=== PATIENT | male | born 1990 | race Caucasian/White ===

== ENCOUNTER 2016-08-20 19:48 | Inpatient (IN) | payer OTHER ==
[2016-08-20] MEDS ORDERED: ZOFRAN IV ONE (20:06)
[2016-08-20] MEDS ORDERED: NS 1,000 ML IV ONE (20:06)
[2016-08-20] MEDS ORDERED: SODIUM CHLORIDE 0.9% INJ ONE (20:06)
[2016-08-20] MEDS ORDERED: PROTONIX IV ONE (20:06)
[2016-08-20 20:17] LABS: MANUAL DIFF NEEDED? NO
[2016-08-20 20:27] LABS: BASO% 0.4 % (0.0-0.8); EOS# 0.46 X1000 (0.0-0.7); EOS% 3.6 % (0.0-10.0); HEMATOCRIT 44.6 % (42.0-52.0); HEMOGLOBIN 15.2 g/dL (14.0-18.0); IMM GRAN# 0.03 X1000 (0.0-0.04); IMM GRAN% 0.2 % (0.0-0.5); LYMPH# 3.31 X1000 (1.2-3.4); MCH 30.3 PG (27-31); MCHC 34.1 g/dL (33-37); MONO# 0.99 X1000 (0.11-0.59); MONO% 7.8 % (1.7-9.3); MPV 9.8 FL (7.4-10.4); PLT 233 X1000 (130-400); RBC 5.01 XMIL (4.7-6.1)
--- NOTE | 2016-08-20 20:48 | PROVIDER DOCUMENTATION ---
HPI-Abdominal Pain/GI Problem - General Source: patient - History of Present Illness-ABD Nature of Presenting Problems: 25 year old M presents to the ED with a cc of nausea and vomiting blood x2 days. Pt is a Dr. Frederick pt and is in the process of being worked up for ALS. PT c/o R sided ABD pain Abdominal Pain Onset Location: reports: RUQ, RLQ Quality of Pain: reports: aching Severity in ED: reports: moderate Onset/Duration: reports: 24 hours ago Emesis Description: reports: red blood Bruising or Bleeding Gums?: No Similar Symptoms Previously?: No Recently seen or treated by another doctor?: No <Roslyn Jackson - Last Filed: 08/20/16 20:57> <George William - Last Filed: 08/20/16 21:34> - General Chief Complaint: Vomiting Blood Stated Complaint: THREWING UP BLOOD Time Seen by Provider: 08/20/16 20:05 Allergies/Adverse Reactions: Patient Allergies Allergy/AdvReac Type Severity Reaction Status Date / Time cephalexin monohydrate * Allergy Severe ANAPHYLAXIS Verified 08/21/14 04:13 [From Keflex] amoxicillin Allergy ANAPHYLAXIS Verified 08/20/16 19:56 Penicillins Allergy ANAPHYLAXIS Verified 08/21/14 04:13 Sulfa (Sulfonamide Allergy ANAPHYLAXIS Verified 08/21/14 04:13 Antibiotics) Home Medications: Home Medication List Medication Instructions Recorded Confirmed Last Taken Type Sucralfate [Carafate] 1 tab PO DAILY 08/20/16 08/20/16 08/20/16 History Review of Systems - Adult - REVIEW OF SYSTEMS - ADULT Constitutional: denies: chills, fever Eyes: reports: no symptoms reported Ears, Nose, Mouth & Throat: reports: no symptoms reported Cardiovascular: reports: no symptoms reported Respiratory: denies: cough, shortness of breath Gastrointestinal: reports: abdominal pain, hematemesis, nausea, vomiting Genitourinary: denies: dysuria, hematuria Musculoskeletal: reports: no symptoms reported Integumentary: denies: skin sores/ulcer, skin thickening Neurological: reports: no symptoms reported Psychiatric: reports: no symptoms reported Endocrine: reports: no symptoms reported Hematologic/Lymphatic: reports: no symptoms reported Allergic/Immunologic: reports: no symptoms reported All Other Systems: Reviewed and Negative <Roslyn Jackson - Last Filed: 08/20/16 20:57> Past History - Adult - PAST MEDICAL HISTORY-ADULT Review of Records: reports: Nursing Assessment Review, Medications Reviewed Major Childhood Illnesses: reports: denies history Cardiovascular: reports: denies history Respiratory: reports: asthma Gastrointestinal: reports: denies history Obstetrical/Gynecological: reports: denies history Genitourinary: reports: kidney stones Musculoskeletal: reports: denies history Neurological: reports: denies history Endocrine/Immune: reports: denies history Other Conditions: reports: denies history - PRIOR SURGERIES/PROCEDURES Surgical/Procedure History: reports: cholecystectomy, other (kidney stone removal/ureteral stent) - IMMUNIZATION STATUS Childhood Immunizations: See Nurse Assessment Flu Vaccine: See Nurse Assessment - FAMILY HISTORY Family History: reviewed, not pertinent - SOCIAL HISTORY Smoking: non-smoker <Roslyn Jackson - Last Filed: 08/20/16 20:57> Physical Exam-General - PHYSICAL EXAM-ADULT Initial Vital Signs Reviewed: Yes - CONSTITUTIONAL General Appearance: alert, no apparent distress - RESPIRATORY Respiratory: chest non-tender, lungs clear, normal breath sounds - CARDIOVASCULAR Cardiovascular: normal peripheral pulses, regular rate, rhythm, no edema - GASTROINTESTINAL (ABDOMEN) Abdominal Exam: normal bowel sounds, soft, tenderness (moderate RUQ tenderness) - MUSCULOSKELETAL Extremity: normal inspection - SKIN Integumentary: normal color, normal turgor, warm/dry - PSYCHIATRIC Psych/Mental Status: normal mood/affect, normal thought content, normal thought process, oriented x 3 <Roslyn Jackson - Last Filed: 08/20/16 20:57> Progress - PLAN OF CARE/RESULTS Progress/Plan/Lab Results: Laboratory Tests 08/20/16 08/20/16 08/20/16 20:10 20:10 20:10 WBC 12.71 H RBC 5.01 Hgb 15.2 Hct 44.6 MCV 89.0 MCH 30.3 MCHC 34.1 RDW Std Deviation 13.3 Plt Count 233 MPV 9.8 Immature Gran % (Auto) 0.2 Neut % (Auto) 62.0 Lymph % (Auto) 26.0 Giles % (Auto) 7.8 Eos % (Auto) 3.6 Baso % (Auto) 0.4 Immature Gran # (Auto) 0.03 Neut # (Auto) 7.87 H Lymph # (Auto) 3.31 Giles # (Auto) 0.99 H Eos # (Auto) 0.46 Baso # (Auto) 0.05 PT 14.1 INR 1.06 APTT (Factor Assay) 36.5 Sodium 137 Potassium 3.8 Chloride 103 Carbon Dioxide 22 L Anion Gap 12 BUN 13 Creatinine 1.2 Estimated GFR/1.73 m2 > 60 BUN/Creatinine Ratio 11 Glucose 95 Calculated Osmolality 274 Calcium 9.8 Total Bilirubin 0.50 AST 25 ALT 34 Alkaline Phosphatase 119 Total Protein 7.4 Albumin 4.9 Globulin 3.0 Albumin/Globulin Ratio 2.0 Urine Source Urine Color Urine Clarity Urine pH Ur Specific [place] Urine Protein Urine Ketones Urine Blood Urine Nitrite Urine Bilirubin Urine Urobilinogen Urine Microscopic RBC Urine WBC Urine Microscopic WBC Ur Epithelial Cells Urine Bacteria Urine Glucose Blood Type 08/20/16 08/20/16 20:10 21:03 WBC RBC Hgb Hct MCV MCH MCHC RDW Std Deviation Plt Count MPV Immature Gran % (Auto) Neut % (Auto) Lymph % (Auto) Giles % (Auto) Eos % (Auto) Baso % (Auto) Immature Gran # (Auto) Neut # (Auto) Lymph # (Auto) Giles # (Auto) Eos # (Auto) Baso # (Auto) PT INR APTT (Factor Assay) Sodium Potassium Chloride Carbon Dioxide Anion Gap BUN Creatinine Estimated GFR/1.73 m2 BUN/Creatinine Ratio Glucose Calculated Osmolality Calcium Total Bilirubin AST ALT Alkaline Phosphatase Total Protein Albumin Globulin Albumin/Globulin Ratio Urine Source CLEAN CATCH Urine Color YELLOW Urine Clarity CLEAR Urine pH 6.5 Ur Specific [place] 1.015 Urine Protein NEGATIVE Urine Ketones 1+(Small) A Urine Blood NEGATIVE Urine Nitrite NEGATIVE Urine Bilirubin NEGATIVE Urine Urobilinogen NORMAL Urine Microscopic RBC TNTC A Urine WBC NEGATIVE Urine Microscopic WBC <10 Ur Epithelial Cells <10 Urine Bacteria 1+ Urine Glucose NEGATIVE Blood Type B POSITIVE Orders Category Date Time Status Saline Loc NOW Care 08/20/16 20:[address] ABD/PELVIS W/ IV CONT ONLY [CT] Stat Exams 08/20/16 21:33 Ordered CBC WITH DIFF [HEME] Stat Lab 08/20/16 20:10 Completed COMPREHENSIVE METABOLIC PANEL [CHEM] Stat Lab 08/20/16 20:[address]IME WITH INR [address] [COAG] Stat Lab 08/20/16 20:[address] [COAG] Stat Lab 08/20/16 20:10 Completed TYPE & SCREEN [BBK] Stat Lab 08/20/16 20:[address] W/POSS RFLX CULT [URINALYSIS] Stat Lab 08/20/16 21:03 Completed 0.9% Sodium Chloride Inj [Ns] 1,000 ml Med 08/20/16 20:06 Discontinued IV 999 mls/hr Ondansetron [Zofran] Med 08/20/16 20:06 Discontinued 4 mg IV NOW ONE Pantoprazole [Protonix] Med 08/20/16 20:06 Discontinued 40 mg IV NOW ONE Sodium Chloride 0.9% Med 08/20/16 20:06 Discontinued 10 ml INJ NOW ONE Vital Signs Temp Pulse Resp BP Pulse Ox 08/20/16 21:00 97.5 F L 55 L 16 122/73 100 08/20/16 19:58 97.2 F L 64 18 128/67 100 cephalexin monohydrate * [From Keflex] Allergy (Severe, Verified 08/21/14 04:13) ANAPHYLAXIS amoxicillin Allergy (Verified 08/20/16 19:56) ANAPHYLAXIS Penicillins Allergy (Verified 08/21/14 04:13) ANAPHYLAXIS Sulfa (Sulfonamide Antibiotics) Allergy (Verified 08/21/14 04:13) ANAPHYLAXIS Sucralfate [Carafate] 1 tab PO DAILY 08/20/16 Laboratory 08/20/16 08/20/16 08/20/16 21:03 20:10 20:10 WBC RBC Hgb Hct MCV MCH MCHC RDW Std Deviation Plt Count MPV Immature Gran % (Auto) Neut % (Auto) Lymph % (Auto) Giles % (Auto) Eos % (Auto) Baso % (Auto) Immature Gran # (Auto) Neut # (Auto) Lymph # (Auto) Giles # (Auto) Eos # (Auto) Baso # (Auto) PT 14.1 INR 1.06 APTT (Factor Assay) 36.5 Sodium Potassium Chloride Carbon Dioxide Anion Gap BUN Creatinine Estimated GFR/1.73 m2 BUN/Creatinine Ratio Glucose Calculated Osmolality Calcium Total Bilirubin AST ALT Alkaline Phosphatase Total Protein Albumin Globulin Albumin/Globulin Ratio Urine Source CLEAN CATCH Urine Color YELLOW Urine Clarity CLEAR Urine pH 6.5 Ur Specific [place] 1.015 Urine Protein NEGATIVE Urine Ketones 1+(Small) A Urine Blood NEGATIVE Urine Nitrite NEGATIVE Urine Bilirubin NEGATIVE Urine Urobilinogen NORMAL Urine Microscopic RBC TNTC A Urine WBC NEGATIVE Urine Microscopic WBC <10 Ur Epithelial Cells <10 Urine Bacteria 1+ Urine Glucose NEGATIVE Blood Type B POSITIVE 08/20/16 08/20/16 20:10 20:10 WBC 12.71 H RBC 5.01 Hgb 15.2 Hct 44.6 MCV 89.0 MCH 30.3 MCHC 34.1 RDW Std Deviation 13.3 Plt Count 233 MPV 9.8 Immature Gran % (Auto) 0.2 Neut % (Auto) 62.0 Lymph % (Auto) 26.0 Giles % (Auto) 7.8 Eos % (Auto) 3.6 Baso % (Auto) 0.4 Immature Gran # (Auto) 0.03 Neut # (Auto) 7.87 H Lymph # (Auto) 3.31 Giles # (Auto) 0.99 H Eos # (Auto) 0.46 Baso # (Auto) 0.05 PT INR APTT (Factor Assay) Sodium 137 Potassium 3.8 Chloride 103 Carbon Dioxide 22 L Anion Gap 12 BUN 13 Creatinine 1.2 Estimated GFR/1.73 m2 > 60 BUN/Creatinine Ratio 11 Glucose 95 Calculated Osmolality 274 Calcium 9.8 Total Bilirubin 0.50 AST 25 ALT 34 Alkaline Phosphatase 119 Total Protein 7.4 Albumin 4.9 Globulin 3.0 Albumin/Globulin Ratio 2.0 Urine Source Urine Color Urine Clarity Urine pH Ur Specific [place] Urine Protein Urine Ketones Urine Blood Urine Nitrite Urine Bilirubin Urine Urobilinogen Urine Microscopic RBC Urine WBC Urine Microscopic WBC Ur Epithelial Cells Urine Bacteria Urine Glucose Blood Type Will admit per Dr. Frederick. - CONSULTS/PCP/HOSPITALIST Notification #1 *Consult/PCP/Hospitalist*: Dr. Frederick Time Discussed: 21:33 Consult Disposition: Admit <George William - Last Filed: 08/20/16 21:34> Departure <Roslyn Jackson - Last Filed: 08/20/16 20:57> - Departure Time of Disposition Order: 21:34 Certified Medical Emergency: Emergent <George William - Last Filed: 08/20/16 21:34> - Departure DIAGNOSIS: Hematemesis with nausea Disposition: ADMITTED INPATIENT 09 Condition: Stable Referrals: Braxton Frederick MD [Primary Care Provider] - Attestation - Scribe Verification/Attestation Scribe:: Roslyn Jackson Acting as Scribe for:: George William Scribe documention review:: This chart was documented by a scribe and accurately reflects the service the provider performed and the decisions made by the provider. <Roslyn Jackson - Last Filed: 08/20/16 20:57> - Physician/ BRITANY Attestation Patient care was provided by Advanced Practice Provider:: Yes Advanced Practice Provider:: George William Advanced Practice Provider documentation review:: The Mid-level provider documentation, treatment plan and medical decision making was reviewed by the physician who agrees with all treatment and medical decision making by the P. <George William - Last Filed: 08/20/16 21:34> Physician Attestation - Physician Attestation I, the provider, attest to the following statement:: George William Physician documentation Attestation:: This documentation recorded by the scribe accurately reflects the service I personally performed and the decisions made by me. <Roslyn Jackson - Last Filed: 08/20/16 20:57>
[2016-08-20 20:51] LABS: INR 1.06 (0.86-1.15); PROTIME 14.1 Seconds (12.1-15.5)
[2016-08-20 20:52] LABS: PTT PL 36.5 Seconds (22.6-43.9)
[2016-08-20 20:56] LABS: AGAP 12; ALBUMIN 4.9 g/dL (3.5-5.0); ALKALINE PHOSPHATASE 119 U/L (32-122); BUN 13 mg/dL (8-22); CALCIUM 9.8 mg/dL (8.8-10.2); CHLORIDE 103 mmol/L (98-107); COSMO 274; GOT 25 U/L (10-34); GPT 34 U/L (10-44); POTASSIUM 3.8 mmol/L (3.5-5.1); SODIUM 137 mmol/L (136-145); TCO2 22 mmol/L (25-35); TOTAL PROTEIN 7.4 g/dL (6.3-8.3)
[2016-08-20 21:12] LABS: URINE CULTURE PL NEEDED? NO; URINE SOURCE CLEAN CATCH
[2016-08-20 21:17] LABS: BILIRUBIN URINE NEGATIVE (NEGATIVE); BLOOD URINE NEGATIVE (NEGATIVE); CLARITY CLEAR (CLEAR); COLOR YELLOW; GLUCOSE URINE NEGATIVE (NEGATIVE); LEUKOCYTES URINE NEGATIVE (NEGATIVE); NITRITE URINE NEGATIVE (NEGATIVE); PH URINE 6.5; PROTEIN URINE NEGATIVE (NEGATIVE); SP GRAVITY URINE 1.015; URINE EPITHELIAL CELLS <10 /HPF (<10); URINE RBC TNTC /HPF (<10); URINE WBC <10 /HPF (<10); UROBILINOGEN URINE NORMAL
[2016-08-20] MEDS ORDERED: MORPHINE IV PRN (21:33)
--- NOTE | 2016-08-20 23:03 | HISTORY AND PHYSICAL ---
PRIMARY CARE PHYSICIAN: Dr. Braxton Frederick. NEUROLOGIST: Dr. Andrews. CHIEF COMPLAINT: Hemoptysis, hematochezia, with worsening right flank pain. HISTORY OF PRESENT ILLNESS: Mr. Patino is a 25-year-old white male undergoing workup and analysis for possible ALS syndrome that presented via a call to the after hours answering service with progressive worsening hemoptysis, hematochezia, that was occurring at least 3 times within the last 24 hours, and worsening right flank pain which is chronic in nature. The patient stated he had been trying to maintain the symptoms with home medications but is failing and decreased p.o. noted with [id number] dehydration. Upon our discussion, the patient was sent to the emergency room for further evaluation including hemoglobin and hematocrit, anemia panels, CT of the abdomen. After this evaluation, it has been noted that the patient is still responding poorly and will need to be further evaluated overnight. REVIEW OF SYSTEMS: A 12-point review of systems is pertinent for items mentioned in the HPI. Patient denies any overt chest pain cardiac in nature, any pleuritic pain, any cough productive of sputum. Denies any blood in the stool, but patient has persistent hematuria at baseline. SOCIAL HISTORY: The patient currently lives at home with father and live-in girlfriend. Works as a part-time mechanical technician. Denies alcohol use. Does use occasional cannabis primarily in the form of CBD oil for chronic intermittent nausea. Denies any illicit drugs and IV use. MEDICATIONS: The patient is on very minimal medications at home, currently stating that he only takes the sucralfate 1 g p.o. prior to meals. FAMILY HISTORY: Reviewed and not pertinent. No family history of ALS or motor neuron disease. PAST SURGICAL HISTORY: Surgeries for acute traumas remotely, but no overt intraabdominal surgery per history. PHYSICAL EXAMINATION: VITAL SIGNS: Temperature 97.5, pulse 55, respirations 16, blood pressure 122/73, O2 saturation noted to be 100% on room air. Current weight is 174. GENERAL: The patient is a pale male, slightly disheveled appearance with poor oral dentition. HEENT: Pupils are equal, round, reactive to light and accommodation. The patient is sitting on an awkward angle with inability to maintain stillness particularly of the right lower extremity. CHEST: Clear to auscultation anteriorly. No rhonchi. No wheeze. CARDIOVASCULAR: Regular rhythm. No murmurs, gallops or rubs noted on my evaluation. ABDOMEN: Scant bowel sounds. Some mild tenderness to palpation over the right upper and middle quadrant. No pelvic tenderness. No noted torsion. LOWER EXTREMITIES: No cyanosis, clubbing or edema. NEUROLOGIC: Cranial nerves II through XII are intact. The patient seemed to demonstrate easy fatigue of the bilateral lower extremities but still able to maintain 4 to 5/5 strength. LABORATORY DATA: WBC 12.71, hemoglobin and hematocrit of 15 and 44, neutrophils 7.87%. PT INR within normal limits. Chemistries show a carbon dioxide of 22. Otherwise, the patient is in excellent condition. Urine shows 1+ ketones, too numerous to count RBCs, and 1+ bacteria with no glucose present. PLAN: A 25-year-old white male with: 1. Severe lower extremity motor neuron disease. 2. Intractable nausea with hematemesis. 3. Leukocytosis. 4. Acute worsening of chronic fatigue. We will admit the patient to [facility] with further evaluation regarding stabilization of the patient's electrolytes, medication needs and such. We will give IV Clinimix due to patient's poor p.o. status, [id number] Zofran with the addition of morphine to be used as needed. We will have send out labs to evaluate the possibility of patient having allergic or type conditions as the acute cause. Though these are unlikely, they should be looked at in this otherwise complicated patient. I will do my best to contact Dr. Andrews regarding the workup for vitamin E, vitamin E and start this supplement in the a.m. The patient will have GI prophylaxis as per all of my patients.
[2016-08-20] MEDS: PROTONIX IV SCH (23:05)
[2016-08-20] MEDS: CLINIMIX E 4.25%-5% SOLUTION 1,000 ML IV SCH (23:35)
[2016-08-20] MEDS: TORADOL IV PRN (23:42)
[2016-08-21] MEDS: TORADOL IV PRN ×2 (04:30→15:04)
[2016-08-21 06:11] LABS: MANUAL DIFF NEEDED? NO
[2016-08-21 06:15] LABS: BASO% 0.5 % (0.0-0.8); EOS# 0.47 X1000 (0.0-0.7); EOS% 5.8 % (0.0-10.0); HEMATOCRIT 39.9 % (42.0-52.0); HEMOGLOBIN 13.4 g/dL (14.0-18.0); IMM GRAN# 0.01 X1000 (0.0-0.04); IMM GRAN% 0.1 % (0.0-0.5); LYMPH# 2.82 X1000 (1.2-3.4); LYMPH% 34.7 % (20.5-51.1); MCH 30.2 PG (27-31); MCHC 33.6 g/dL (33-37); MCV 89.9 FL (81-99); MONO# 0.81 X1000 (0.11-0.59); MPV 9.9 FL (7.4-10.4); NEUT% 48.9 % (42.2-75.2); PLT 207 X1000 (130-400); RBC 4.44 XMIL (4.7-6.1)
[2016-08-21] MEDS ORDERED: MORPHINE IV PRN (06:34)
[2016-08-21 06:48] LABS: AGAP 8; ALBUMIN 3.8 g/dL (3.5-5.0); ALKALINE PHOSPHATASE 98 U/L (32-122); AMYLASE 60 U/L (20-200); BUN 15 mg/dL (8-22); CALCIUM 9.3 mg/dL (8.8-10.2); CHLORIDE 108 mmol/L (98-107); COSMO 280; GOT 42 U/L (10-34); GPT 49 U/L (10-44); LIPASE 48 U/L (13-60); MAGNESIUM 1.9 mg/dL (1.5-2.7); POTASSIUM 4.1 mmol/L (3.5-5.1); SODIUM 139 mmol/L (136-145); TCO2 23 mmol/L (25-35); TOTAL PROTEIN 5.8 g/dL (6.3-8.3)
[2016-08-21 07:19] LABS: INR 1.07 (0.86-1.15); PROTIME 14.2 Seconds (12.1-15.5)
[2016-08-21] MEDS ORDERED: MAGNESIUM SULFATE 2 GM/S.W.I. 50 ML IV ONE (08:19)
[2016-08-21] MEDS ORDERED: REGLAN IV PRN (08:19)
[2016-08-21 08:40] LABS: URINE SOURCE CLEAN CATCH
[2016-08-21 08:41] LABS: BILIRUBIN URINE NEGATIVE (NEGATIVE); BLOOD URINE NEGATIVE (NEGATIVE); CLARITY SLIGHTLY CLOUDY (CLEAR); COLOR YELLOW; GLUCOSE URINE NEGATIVE (NEGATIVE); NITRITE URINE NEGATIVE (NEGATIVE); PH URINE 6.5; PROTEIN URINE TRACE mg/dL (NEGATIVE); URINE CRYSTAL CA OXALATE PRESENT /HPF; URINE EPITHELIAL CELLS <10 /HPF (<10); URINE WBC <10 /HPF (<10); UROBILINOGEN URINE 2+(4 mg/dL)
[2016-08-21 08:42] LABS: LEUKOCYTES URINE TRACE (NEGATIVE)
--- NOTE | 2016-08-21 08:43 | PROGRESS NOTE ---
DATE: 08/21/2016 PRIMARY CARE PHYSICIAN: Dr. Braxton Frederick. NEUROLOGIST: Dr. Andrews. SUBJECTIVE: Overnight, the patient had minimal sleep. Still required a lot of IV medication for the nausea. The patient did not have any recurrent hematemesis but states he feels like it is going to occur at any moment. There were episodes of bradycardia with the lowest noted 46. VITAL SIGNS: Temperature 97.8, pulse 61, respirations 18, blood pressure 122/66, O2 saturation 99% on room air. Patient was NPO. Urine unmeasured. PHYSICAL EXAMINATION: General: A well-developed, well-nourished, male. Age consistent with appearance. Moderate distress noted. HEENT: Shows poor oral dentition. No erythema. Neck: Supple. No JVD. No lymphadenopathy. CV: Bradycardic with regular rhythm. No murmurs, gallops, rubs. Lungs: Clear to auscultation anteriorly. Abdomen: Tender in the right upper quadrant and right middle quadrant without radiation. No guarding. No rebound noted. Neurological: Cranial nerves 2-12 are grossly intact, through there are some decreased reflexes at the bilateral lower extremities. LABS: WBC down from 12.8 to 8, with a hemoglobin and hematocrit of 13 and 39 respectively, and mild monocytosis at 10. PT and INR within normal limits. Chemistry showed sodium 139, chloride of 108, anion gap of 8, creatinine 1, glucose is 126. Phosphorus high at 4.7 with a ferritin pending. Magnesium 1.9. AST 42, ALT of 49, total protein low at 5.7. Amylase and lipase within normal limits. TSH of 1.54. Remainder of labs are pending. A CT of the abdomen is pending. ASSESSMENT AND PLAN: The patient is a 25-year-old male with: 1. 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 2. Hematemesis. 3. Right quadrant abdominal pain. 4. Hematuria. 5. Intractable nausea and vomiting. PLAN: We will continue the fluid, switching over to IV normal saline with magnesium. Discontinue the Clinimix. Review the CT. Make plans for a mesenteric arterial evaluation, likely in the a.m. Switch pain medications to Demerol for better control. Utilize both Reglan and Marinol for the chronic nausea. We will make these changes and follow up on the labs as appropriate.
[2016-08-21] MEDS: VITAMIN E PO SCH (08:57)
[2016-08-21] MEDS: MARINOL PO SCH ×2 (08:58→20:56)
[2016-08-21] MEDS ORDERED: VITAMIN E PO ONE (09:00)
[2016-08-21] MEDS: CLINIMIX E 4.25%-5% SOLUTION 1,000 ML IV SCH (09:02)
[2016-08-21] MEDS: DEMEROL IV PRN ×3 (09:11→20:56)
[2016-08-21] MEDS: PROTONIX IV SCH ×2 (09:14→20:57)
[2016-08-21] MEDS: SODIUM CHLORIDE 0.9% INJ SCH (09:14)
--- NOTE | 2016-08-21 09:35 | Diag Imaging Result Document ---
PROCEDURE NAME: CT ABD/PELVIS W/ IV CONT ONLY - 08/20/2016 CT ABDOMEN AND PELVIS WITH IV CONTRAST: COMPARISON: 08/21/2014. FINDINGS: There has been a previous cholecystectomy. There is no evidence of biliary dilatation. There are a few 2-3 mm nonobstructing intrarenal stones bilaterally. There is no hydronephrosis or other sign of obstructive uropathy. The urinary bladder is unremarkable. There is a tiny right renal hypodensity that appears to represent a small cyst. The kidneys are unremarkable, otherwise. The appendix is normal. There is no evidence of bowel obstruction. The remainder of the solid viscera of the abdomen and pelvis and the remainder of the GI tract is essentially unremarkable. IMPRESSION: A few small nonobstructing intrarenal stones bilaterally but no hydronephrosis or other definite acute pathology.
--- NOTE | 2016-08-21 10:52 | Diag Imaging Result Document ---
PROCEDURE NAME: ANGIOGRAM/MESENTERIC ARTERY - 08/21/2016 CTA MESENTERIC ARTERIES: COMPARISON: Conventional CT of the abdomen and pelvis with IV contrast dated 08/20/2016. FINDINGS: The aorta and iliac arteries are widely patent exhibiting no sign of significant atherosclerotic disease. There is no evidence of aortic dissection or aneurysm. The superior and inferior mesenteric arteries and their branches are all widely patent. The celiac artery and both renal arteries are patent. Otherwise, the abdomen is stable as compared to the very recent prior conventional CT abdomen and pelvis with no evidence of acute pathology. Nonobstructing nephrolithiasis is again noted. IMPRESSION: 1. Essentially unremarkable mesenteric CTA with no evidence of flow-limiting stenosis involving the aorta, iliac arteries, or their major branches. 2. Otherwise, stable as compared to the very recent prior conventional CT with no evidence of acute pathology.
[2016-08-21] MEDS ORDERED: BENADRYL CREAM TOP PRN (11:15)
[2016-08-21] MEDS: ZOFRAN IV PRN (18:58)
[2016-08-22] MEDS: DEMEROL IV PRN ×3 (01:11→11:52)
[2016-08-22 06:09] LABS: MANUAL DIFF NEEDED? NO
[2016-08-22 06:22] LABS: BASO% 0.2 % (0.0-0.8); EOS% 4.6 % (0.0-10.0); HEMATOCRIT 40.1 % (42.0-52.0); HEMOGLOBIN 13.3 g/dL (14.0-18.0); IMM GRAN# 0.04 X1000 (0.0-0.04); IMM GRAN% 0.4 % (0.0-0.5); LYMPH# 3.01 X1000 (1.2-3.4); LYMPH% 27.5 % (20.5-51.1); MCH 29.7 PG (27-31); MCHC 33.2 g/dL (33-37); MCV 89.5 FL (81-99); MONO# 1.05 X1000 (0.11-0.59); MONO% 9.6 % (1.7-9.3); MPV 10.1 FL (7.4-10.4); NEUT% 57.7 % (42.2-75.2); PLT 206 X1000 (130-400); RBC 4.48 XMIL (4.7-6.1)
[2016-08-22 06:39] LABS: AGAP 9; ALBUMIN 3.9 g/dL (3.5-5.0); ALKALINE PHOSPHATASE 96 U/L (32-122); BUN 13 mg/dL (8-22); CALCIUM 9.2 mg/dL (8.8-10.2); CHLORIDE 108 mmol/L (98-107); COSMO 280; GOT 29 U/L (10-34); GPT 52 U/L (10-44); MAGNESIUM 1.9 mg/dL (1.5-2.7); SODIUM 140 mmol/L (136-145); TCO2 23 mmol/L (25-35); TOTAL PROTEIN 5.9 g/dL (6.3-8.3)
[2016-08-22] MEDS: MARINOL PO SCH (08:35)
[2016-08-22] MEDS: VITAMIN E PO SCH (08:35)
[2016-08-22] MEDS: TORADOL IV PRN ×2 (08:36→15:28)
[2016-08-22] MEDS: PROTONIX IV SCH ×3 (11:43→21:46)
[2016-08-22] MEDS: SODIUM CHLORIDE 0.9% INJ SCH (11:43)
[2016-08-22] MEDS ORDERED: MESTINON PO ONE (13:10)
[2016-08-22] MEDS ORDERED: SODIUM CHLORIDE 0.9% INJ PRN (13:11)
[2016-08-22] MEDS ORDERED: SOLU-MEDROL IV SCH (13:15)
[2016-08-22] MEDS: ZOFRAN IV PRN ×2 (15:12→20:35)
[2016-08-22] MEDS: ZOVIRAX IV SCH ×2 (15:12→21:56)
[2016-08-22] MEDS: DILAUDID IV PRN ×2 (15:12→20:35)
[2016-08-22] MEDS: NS IV SCH ×2 (15:12→21:56)
[2016-08-22] MEDS: TEGRETOL PO SCH ×2 (16:50→20:35)
[2016-08-22] MEDS: SOLU-MEDROL IV SCH (18:33)
[2016-08-23] MEDS: ZOFRAN IV PRN ×2 (01:06→05:57)
[2016-08-23] MEDS: SOLU-MEDROL IV SCH ×3 (01:06→17:10)
[2016-08-23] MEDS: DILAUDID IV PRN ×6 (01:06→22:57)
[2016-08-23] MEDS: NS IV SCH (06:03)
[2016-08-23] MEDS: ZOVIRAX IV SCH (06:03)
[2016-08-23 06:37] LABS: AGAP 11; ALBUMIN 4.8 g/dL (3.5-5.0); ALKALINE PHOSPHATASE 115 U/L (32-122); BUN 11 mg/dL (8-22); CHLORIDE 102 mmol/L (98-107); COSMO 274; GOT 27 U/L (10-34); GPT 53 U/L (10-44); MAGNESIUM 1.8 mg/dL (1.5-2.7); POTASSIUM 4.5 mmol/L (3.5-5.1); SODIUM 136 mmol/L (136-145); TCO2 23 mmol/L (25-35); TOTAL PROTEIN 7.2 g/dL (6.3-8.3)
[2016-08-23 06:38] LABS: BASO% 0.2 % (0.0-0.8); EOS# 0.01 X1000 (0.0-0.7); EOS% 0.1 % (0.0-10.0); HEMATOCRIT 44.6 % (42.0-52.0); IMM GRAN# 0.02 X1000 (0.0-0.04); IMM GRAN% 0.2 % (0.0-0.5); LYMPH# 1.13 X1000 (1.2-3.4); MANUAL DIFF NEEDED? YES; MCH 29.6 PG (27-31); MCHC 33.6 g/dL (33-37); MONO# 0.06 X1000 (0.11-0.59); MONO% 0.5 % (1.7-9.3); MPV 10.4 FL (7.4-10.4); PLT 234 X1000 (130-400); RBC 5.07 XMIL (4.7-6.1)
[2016-08-23 07:41] LABS: LYMPHS 6 % (21-51); MONO 2 % (1-9)
[2016-08-23] MEDS ORDERED: NS 1,000 ML IV SCH (08:00)
[2016-08-23] MEDS ORDERED: REGLAN LIQUID PO PRN (08:55)
[2016-08-23] MEDS ORDERED: VITAMIN C PO ONE (09:03)
[2016-08-23] MEDS: ZOFRAN ODT PO SCH ×4 (09:40→20:13)
[2016-08-23] MEDS: VITAMIN E PO SCH (09:40)
[2016-08-23] MEDS: MUCINEX PO SCH ×3 (09:41→20:13)
[2016-08-23] MEDS: TEGRETOL PO SCH ×3 (09:41→17:10)
--- NOTE | 2016-08-23 11:47 | PROGRESS NOTE ---
DATE: 08/23/2016 SUBJECTIVE: The patient is still having nausea and vomiting, still not feeling well, still not able to drink with any regularity. OBJECTIVE: Vital Signs: Reviewed. Temperature 97 degrees, pulse 48 to 51, respiratory rate 18- 20, blood pressure 115/53. General: Patient is a well-developed male who is still in moderate distress, still having frequent nausea and vomiting, still requiring frequent IV pain medication. ASSESSMENT: 1. Nausea and vomiting. 2. Abdominal pain. 3. Hematemesis, resolved. 4. Severe lower extremity motor neuron disease. 5. Leukocytosis. White count has steadily started climbing back to 12.5. PLAN: Will restart IV fluids. We will continue his symptomatic medications, continue steroids. Further orders as needed.
--- NOTE | 2016-08-23 12:22 | PROGRESS NOTE ---
DATE: 08/23/2016 PRIMARY CARE PHYSICIAN: Dr. Braxton Frederick. NEUROLOGIST: Dr. Andrews. Overnight patient still continued to have pain and had some right flank issues, was noted to pass a kidney stone approximately 3 mm. Response to Mestinon overnight was very poor with profuse diarrhea, effectively ruling out myasthenia gravis as a cause of his underlying condition. VITAL SIGNS: Temperature 97.3 degrees, pulse 51, respirations 18, blood pressure 115/53, O2 saturation 98% on room air. I Os, the patient having about 1 L output, eating somewhere between 60 and 75% of meals. PHYSICAL EXAM: Pale, well-developed well-nourished male in moderate to severe distress. No JVD.Neck: Supple. Chest: Clear to auscultation anteriorly. The patient has diffuse pain in the area of approximately right T2-T10 going all the way around to the midline but not crossing the midline. No signs of overlying rashes. There is some soft tissue swelling around the area but no overt changes or bruising. Axillary nodes are palpable and there is a papule to nodule under the right axilla. Abdomen: Soft, nontender, nondistended. Cannot evaluate rebounding and tenderness due to the patient's underlying illness. LABS: Show WBC of 12.53 status post steroid use with hemoglobin and hematocrit of 15 and 44, neutrophils of 90. Sodium 136, potassium 4.5, creatinine 0.8, phosphorus 3.5, AST ALT down to 27 and 53. TSH 0.4. Microbiology, all cultures urine and blood no growth to date at this time. ASSESSMENT/PLAN: 25-year-old male with: 1. Reflex sympathetic dystrophy right T2 to T10 area. 2. Hematemesis. 3. Right-sided abdominal pain. 4. Hematuria with known stone and intractable nausea, vomiting. PLAN: DC the fluid. We are going to DC all IV medications and start p.o. medications as tolerated using liquids as possible CT and mesenteric angiogram reviewed is negative. Will continue the carbamazepine and up titrate that dose along with switching over to some p.o. liquid Reglan and Zofran. Will have Demerol for the underlying control if not responding to the medications. Due to the review of some literature, we are going to start guaifenesin for both pain control, muscle relaxant at the dose of 1200 extended release b.i.d. and monitor effect. Will continue the steroids as noted and if the patient is responding well, we will consider this an appropriate outpatient treatment for the pain while we undergo further evaluation for possible ablation versus counter balance of the neurological issues that is consistent with a neuralgia that would likely be permanent.
[2016-08-24] MEDS: ZOFRAN IV PRN ×2 (01:15→08:27)
[2016-08-24] MEDS: DILAUDID IV PRN ×4 (03:04→19:22)
[2016-08-24] MEDS: SOLU-MEDROL IV SCH (03:05)
[2016-08-24] MEDS: ZOFRAN ODT PO SCH (03:05)
[2016-08-24 06:50] LABS: EOS# 0.01 X1000 (0.0-0.7); HEMATOCRIT 42.7 % (42.0-52.0); HEMOGLOBIN 14.3 g/dL (14.0-18.0); IMM GRAN# 0.06 X1000 (0.0-0.04); IMM GRAN% 0.2 % (0.0-0.5); LYMPH# 1.54 X1000 (1.2-3.4); LYMPH% 6.4 % (20.5-51.1); MANUAL DIFF NEEDED? YES; MCH 29.6 PG (27-31); MCHC 33.5 g/dL (33-37); MCV 88.4 FL (81-99); MONO# 1.16 X1000 (0.11-0.59); MONO% 4.8 % (1.7-9.3); MPV 10.3 FL (7.4-10.4); NEUT% 88.6 % (42.2-75.2); PLT 224 X1000 (130-400); RBC 4.83 XMIL (4.7-6.1)
[2016-08-24 07:16] LABS: AGAP 14; ALBUMIN 4.6 g/dL (3.5-5.0); ALKALINE PHOSPHATASE 102 U/L (32-122); BUN 11 mg/dL (8-22); CALCIUM 9.7 mg/dL (8.8-10.2); CHLORIDE 101 mmol/L (98-107); COSMO 277; GOT 17 U/L (10-34); GPT 40 U/L (10-44); POTASSIUM 4.3 mmol/L (3.5-5.1); SODIUM 138 mmol/L (136-145); TCO2 23 mmol/L (25-35); TOTAL PROTEIN 6.9 g/dL (6.3-8.3)
[2016-08-24 07:17] LABS: BANDS 1 % (0-1); LYMPHS 7 % (21-51); MONO 2 % (1-9)
--- NOTE | 2016-08-24 08:25 | Diag Imaging Result Document ---
PROCEDURE NAME: CHEST-PORTABLE - 08/24/2016 PORTABLE CHEST, TWO VIEWS: COMPARISON: Compared to 07/31/2014. FINDINGS: The lungs are well expanded. The heart is not enlarged. The vessels are not distended. No pneumonia. No pleural effusions identified. IMPRESSION: Negative chest.
[2016-08-24] MEDS: VITAMIN E PO SCH (08:30)
[2016-08-24] MEDS: MUCINEX PO SCH (08:30)
[2016-08-24] MEDS: TEGRETOL PO SCH ×4 (08:31→22:08)
[2016-08-24] MEDS ORDERED: VITAMIN C PO SCH (09:00)
[2016-08-24] MEDS: PHENERGAN LIQUID PO PRN ×2 (13:09→19:23)
[2016-08-24 14:51] LABS: LDH 296 U/L (135-225)
[2016-08-24] MEDS ORDERED: ATIVAN IV PRN (15:59)
[2016-08-24 16:28] VITALS: BP 133/41
--- NOTE | 2016-08-24 18:37 | DISCHARGE SUMMARY ---
ADMISSION DATE: 08/20/2016 DISCHARGE DATE: PRIMARY CARE PHYSICIAN: Dr. Braxton Frederick. CHIEF NEUROLOGIST: On the case is Dr. Andrews. There is a transfer to [facility] transfer. CHIEF COMPLAINT ON ADMISSION: Hemoptysis, hematemesis, hematochezia with worsening right flank pain. HISTORY OF PRESENT ILLNESS: Mr. 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 Patient responded stating that this occurred alongside an increase in his chronic right flank pain. Patient stated he was using home medications with increasing dosage that they were failing. The patient also noted poor p.o. intake and concern for mild to moderate dehydration. Upon discussion patient was sent to the emergency room for further evaluation, hemoglobin and hematocrit anemia panels and CT of the abdomen and admitted status post. PROBLEM LIST ON DISCHARGE: Includes. 1. Hematemesis with stable hemoglobin and hematocrit. 2. Dysphagia. 3. Dehydration with poor p.o. intake secondary to #4. 4. Intractable nausea, vomiting. 5. Hematuria. 6. Complex regional pain syndrome. 7. Bradycardia with poor ability to tolerate opioids sinus. 8. Tremor. CONSULTS: There were no consults in this case due to lack of consult availability. IMAGING: Abdomen, pelvis CT performed 08/20/2016 noted diffuse small nonobstructing intrarenal stones bilaterally, no hydronephrosis, no other acute pathology noted, history of previous cholecystectomy, no evidence of biliary dilatation. Mesenteric arteriogram performed 08/21/2016 shows essentially unremarkable mesenteric CTA with no evidence of flow limiting stenosis involving aorta, iliac arteries or major branches otherwise stable as compared to the recent conventional CT, no evidence of acute pathology. Chest x-ray performed 08/24/2016 shows well- expanded lungs, normal size heart, vessels nondistended, no pneumonia, no pleural effusions identified. Vital signs throughout the stay have noted temperature from 97.8 down to 97.5, pulse ranging from 47-63, blood pressure stable approximately 114/59, 133/41, O2 saturation is 98-100% on room air. Weight is 170 pounds. I's and O's measured inconsistently. Patient is having approximately 700-1500 mL of fluid out per night, meals have been 60% at maximum but as little noted 25%. Patient is having approximately 1 bowel movement per day noted to be loose and watery without emesis noted at least once daily described as pink upon my evaluation and stated to be hermilo blood on initial admission. LABORATORY: WBC ranging from 8-24.12 status post high dose steroids. MCV normal, neutrophils status post steroids are 90 coming down to 88.6, lymphocytes stable at 9.0 6.4, hemoglobin and hematocrit dropped to 13.4 and 39, currently 14.3 and 42.7 on the time of discharge, platelets within normal limits. Patient has 90 segs, only 1 band noted. PT/INR within normal limits 1.07. Chemistry notes normal sodium, carbon dioxide levels low at 23, anion gap of 14, creatinine range initial 1.2 down to 0.8, on day of discharge glucose ranging from 95-148, calcium 9.7, phosphorus high at 4.7 down to 3.5, magnesium 1.9, ferritin 102, total bilirubin within normal limits. AST trending up to 42 and 47 down 17 and 14 on the day of transfer, LDH of 296 with an alkaline phosphatase of 102, albumin of 4.6, alpha 1 antitrypsin 165 in a range of 100 to 190 so essentially negative, vitamin B12 normal at 901, TSH 1.54 and 0.4 on no medications for thyroid. Gastroccult blood negative 08/21/2016. Urinary studies showed 1+ bacteria, positive calcium oxalate crystals present, 2+ urobilinogen, urine protein was noted to be total of 11 with no monoclonal bands , no Bence-Wick protein, urine hemosiderin was negative as well. PENDING LABS: Please note the following labs are pending. Hepatitis profile, kidney stone analysis, vitamin E, JAK2 mutation and further followup of urine cytology. MEDICATIONS: Please refer to medication reconciliation order form. Patient will be continued on high-dose vitamin C 3000 mg p.o., Dilaudid 0.5 mg IV q.3 hours p.r.n., promethazine 6.25 mg p.o. q.6 hours p.r.n., lorazepam 2 mg IV at bedtime p.r.n. insomnia, vitamin E 800 mg p.o. daily, carbamazepine 200 mg p.o. 4 times a day liquid, calcitonin Fortical 1 spray MATY daily. HOSPITAL COURSE: Mr. Patino is a medically complex 25-year-old followed up by myself and Dr. Andrews at outpatient clinic with a history of this right flank reflex dystrophy that does exacerbate some of his chronic and intractable nausea, vomiting symptoms. He was admitted, treated with Clinimix x2 L then switching over to normal saline, responded well. Pain was exacerbating the GI issues. Patient continued to have hematemesis and heme-positive stool but the pain continued to be his most severe complaint. Patient's p.o. intake dropped tremendously. Patient was treated with IV and p.o. Reglan, IV Zofran, Phenergan did have an improved affect but only when taken p.o. as liquid. The patient was advised to use PT and a walker but on day 2 of the admission was unable to do it due to lower extremity weakness and poor p.o. intake along with the pain. On day 3 of admission patient passed approximately 2 mm stone resembling calcium oxalate just on gross evaluation. Majority of workup for acute pathology has been negative but due to the requirement for specialist services with Neurology and Gastroenterology decision was made between myself and the family regarding a transfer to a higher acuity of care. For the chronic pain patient was treated with higher doses of morphine which he responded with bradycardia. We switched to lower doses of Dilaudid and patient is taking only when absolutely necessary. Carbamazepine is being used with titration up to maximum dose and then back down to 200 mg p.o. q.i.d. due to worsening of the nausea and dizziness at that high dose. Patient has a history of gabapentin and Lyrica intolerance with questionable neuroleptic malignant syndrome versus tremor/anxiety with said medication. The patient is aware of the risks of opioid overuse and is currently adamant about having the least amount of opioids as possible due to the confusion and the risk of overuse to the point of possible . TRANSFER: We are transferring the patient to [place] under the care of their internal medicine service with followup per Neurology and Gastroenterology and will allow them to take over the care as soon as he becomes available at their clinic. Patient is being transferred in stable condition and will be treated appropriately regarding his chronic and acute conditions. Patient will have on his person all of the labs, workup, imaging available and we will follow up as outpatient once he has been discharged from that hospital. TIME SPENT: This discharge took greater than 30 minutes to perform.
[2016-08-24] MEDS ORDERED: ATIVAN PO SCH (21:00)
[2016-08-25] MEDS ORDERED: FORTICAL NAS SCH (09:00)
[2016-08-26 15:14] LABS: HEPATITIS PROFILE ACUTE SEE COMMENTS (())
== END 2016-08-24 21:55 | disposition short-term general hospital (02) | DRG 378 ==
LOC: P.ED 19:48 → P.MEDSURG 19:49 → OBSVTOIN 19:49
PROVIDERS: ATTEND Family Medicine
PROC: 3E0336Z Introduction of Nutritional Substance into Peripheral Vein, Percutaneous Approach (ICD-10-PCS; principal; 2016-08-20)
DX: K92.0 Hematemesis (principal); G90.529 Complex regional pain syndrome I of unspecified lower limb; K52.1 Toxic gastroenteritis and colitis; R13.10 Dysphagia, unspecified; R04.2 Hemoptysis; K92.1 Melena; E86.0 Dehydration; R00.1 Bradycardia, unspecified; N20.0 Calculus of kidney; T44.0X5A Adverse effect of anticholinesterase agents, initial encounter; R25.1 Tremor, unspecified; T40.2X5A Adverse effect of other opioids, initial encounter; Z79.899 Other long term (current) drug therapy
CPT/HCPCS: 36415; 71010; 74175; 74177; 80053; 80074; 81001; 81050; 81270; 82103; 82150; 82271; 82360; 82607; 82728; 83615; 83690; 83735; 84100; 84156; 84166; 84443; 84446; 85025; 85610; 85730; 86850; 86900; 86901; 87040; 87088; 88300; 88313; 94761; 96361; 96374; 96375; C9113; J0133; J1170; J1885; J2060; J2175; J2405; J2930; J3475; J7030; Q9967; S0164